=== PATIENT | female | born 1995 | race African-American/Black ===

== ENCOUNTER 2018-01-09 11:47 | Inpatient (IN) | payer MEDICAID ==
[2018-01-09] MEDS ORDERED: ACETAMINOPHEN 325 MG TAB PO PRN (13:45)
[2018-01-09] MEDS ORDERED: LORazepam 1 MG TAB PO PRN (13:45)
[2018-01-09] MEDS ORDERED: MAGNESIUM HYDROXIDE SUSP 30 ML CUP PO PRN (13:45)
[2018-01-09] MEDS ORDERED: ALUMINUM/MAGNESIUM/SIMETH 30 ML CUP PO PRN (13:45)
[2018-01-09] MEDS ORDERED: diphenhydrAMINE HCL 50 MG CAP PO PRN (13:45)
[2018-01-09] MEDS ORDERED: LORazepam 2 MG/ML VIAL IM PRN (13:45)
[2018-01-09] MEDS ORDERED: ZOLO25TA PO (14:25)
[2018-01-09] MEDS ORDERED: ALBU1AER5 INH (14:25)
[2018-01-09] MEDS ORDERED: BUSP10TA PO (14:25)
[2018-01-09] MEDS ORDERED: CELE10TA PO (14:25)
[2018-01-09] MEDS ORDERED: VIST50CA PO (14:25)
[2018-01-09] MEDS ORDERED: LURA40 PO (14:25)
[2018-01-09] MEDS ORDERED: TRAZ1TAB14 PO (14:25)
[2018-01-09 14:41] VITALS: BP 134/80; PULSE 67; RESP 18; TEMP 98.3; O2SAT 99
[2018-01-10 05:49] VITALS: BP 116/59; PULSE 78; RESP 18; TEMP 98.4; O2SAT 100
[2018-01-10 06:51] LABS: BICARBONATE 25.4 MEQ/L (21.0-32.0); BLOOD UREA NITROGEN 12 MG/DL (7-18); CALCIUM 8.5 MG/DL (8.5-10.1); CHLORIDE 108 MEQ/L (98-107); CHOLESTEROL 127 MG/DL (120-200); CREATININE 0.72 MG/DL (0.50-1.00); GLOMERULAR FILTRATION RATE 125 ML/MIN (>89); GLUCOSE,RANDOM 91 MG/DL (74-106); SODIUM (NA) 139 MEQ/L (136-145); TRIGLYCERIDES 113 MG/DL (42-150)
[2018-01-10 07:00] LABS: HDL CHOLESTEROL 29.5 MG/DL (40.0-60.0); LDL CHOLESTEROL 75 MG/DL (0-99)
[2018-01-10] MEDS ORDERED: INFLUENZA VIRUS VACCINE (QUADRIVALENT) 0.5 ML SYR IM ONE (10:00)
[2018-01-10] MEDS ORDERED: PNEUMOCOCCAL POLYVALENT INJ 25 MCG/0.5 ML SYR IM ONE (10:00)
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
[2018-01-10] MEDS ORDERED: hydrOXYzine HCL 50 MG TAB PO PRN (12:00)
[2018-01-10] MEDS ORDERED: POTASSIUM CHLORIDE 10 MEQ CONTROLLED RELEASE TAB PO ONE (13:45)
[2018-01-10 16:12] LABS: HEMOGLOBIN A1C 5.5 % (4.3-6.0)
[2018-01-10 17:00] VITALS: BP 126/66; PULSE 71; RESP 18; TEMP 98.2; O2SAT 100
[2018-01-10] MEDS ORDERED: ALBUTEROL SULFATE 90 MCG/ACT HFA 8 GM INHALER INH PRN (17:00)
[2018-01-10] MEDS: traZODone HCL 50 MG TAB PO SCH (20:23)
[2018-01-11 06:09] VITALS: BP 100/53; PULSE 72; RESP 16; TEMP 97.3; O2SAT 99
[2018-01-11] MEDS: SERTRALINE HCL 50 MG TAB PO SCH (08:00)
[2018-01-11] MEDS: LURASIDONE 40 MG TAB PO SCH (08:00)
--- NOTE | 2018-01-11 09:49 | HHI.PYPN ---
Subjective Chief Complaint: SI Remarks Patient seen and examined with nurse. Chart reviewed. Case discussed with nursing staff who reports that the patient is childlike and somewhat manipulative. Case discussed in treatment team. On my examination today, the patient seems to have reconstituted quickly. She denies any suicidal or homicidal ideation. She is enjoying the socialization on the high acuity unit. She says that she is feeling better and is hopeful for discharge soon. Mood is "pretty happy." She denies AVH. Slept well overnight. Denies side effects from medications. No physical complaints. We discussed possible referral for residential treatment, and patient is receptive to this. Counselor to send out referral to [facility]. Review of Systems Except as stated in HPI: all other systems reviewed are Neg Mental Status Examination Appearance: Appropriate Consciousness: Alert Orientation: x4 Motor Activity: Other (no motor abnormalities noted) Speech: Unremarkable Language: Adequate Fund of Knowledge: Adequate Attention and Concentration: Adequate Memory: Unremarkable Mood: Other ("pretty happy") Affect: Appropriate (somewhat childlike) Thought Process & Associations: Intact, Logical, Goal directed, Linear Thought Content: Appropriate Hallucination Type: None Delusion Type: None Suicidal Ideation: No Suicidal Plan: No Suicidal Intention: No Homicidal Ideation: No Homicidal Plan: No Homicidal Intention: No Insight: Fair Judgment: Impulsive Results Labs labs reviewed. Ongoing microcytic anemia and iron studies are consistent with iron deficiency. Alkaline phosphatase elevation improving. Item Value Date Time White Blood Count 6.9 TH/MM3 01/11/18 0906 Hemoglobin 10.4 GM/DL L 01/11/18 0906 Mean Corpuscular Volume 70.0 FL L 01/11/18 0906 Platelet Count 322 TH/MM3 01/11/18 0906 Sodium Level 139 MEQ/L 01/11/18 0906 Potassium Level 3.6 MEQ/L 01/11/18 0906 Chloride Level 107 MEQ/L 01/11/18 0906 Carbon Dioxide Level 21.9 MEQ/L 01/11/18 0906 Blood Urea Nitrogen 12 MG/DL 01/11/18 0906 Creatinine 0.77 MG/DL 01/11/18 0906 Magnesium Level 2.1 MG/DL 01/11/18 0906 Iron Level 23 MCG/DL L 01/11/18 0906 Total Iron Binding Capacity 500 MCG/DL H 2/16/18 0906 Percent Iron Saturation 4.6 % L 01/11/18905 Ferritin 9 NG/ML 01/11/18905 Alkaline Phosphatase 129 U/L H 01/11/18905 Total Protein 7.2 GM/DL 01/11/18905 Alanine Aminotransferase (ALT/SGPT) 41 U/L 01/11/18905 Aspartate Amino Transf (AST/SGOT) 31 U/L 01/11/18905 Vitals/IOs Vital Signs Date Time Temp Pulse Resp B/P (MAP) Pulse Ox O2 Delivery O2 Flow Rate FiO2 01/11/18 06:09 97.3 72 16 100/53 (69) 99 Assessment & Plan Problem List: (1) Adjustment disorder with mixed disturbance of emotions and conduct ICD Codes: F43.25 - Adjustment disorder with mixed disturbance of emotions and conduct (2) Borderline personality disorder ICD Codes: F60.3 - Borderline personality disorder Assessment & Plan Continue Zoloft and other psychotropics as ordered. Add iron supplement. Continue to monitor on the inpatient unit; I did offer to have the patient return to the lower acuity unit since she is now denying suicidal ideation but she prefers to stay on the higher acuity unit. Continue other medications and care as ordered. Justification for Cont. Inpt. Monitoring for impairment in safety, none noted. Discharge Planning Anticipate discharge after the weekend, hopefully to residential if patient is accepted. Request HC Surrog/Guard Advoc?: No Jairo Butler MD Jan 11, 2018 09:49
[2018-01-11 10:06] LABS: BASOPHIL % 0.4 % (0.0-2.0); EOSINOPHIL # 0.2 TH/MM3 (0-0.4); EOSINOPHIL % 3.1 % (0.0-4.0); HEMATOCRIT 33.6 % (35.0-46.0); HEMOGLOBIN 10.4 GM/DL (11.6-15.3); LYMPH % 32.3 % (9.0-44.0); LYMPHOCYTE # 2.2 TH/MM3 (1.0-4.8); MEAN CORPUSCULAR HEMOGLOBIN 21.8 PG (27.0-34.0); MEAN CORPUSCULAR HGB CONC 31.1 % (32.0-36.0); MEAN PLATELET VOLUME 7.9 FL (7.0-11.0); MONO % 5.5 % (0.0-8.0); MONOCYTE # 0.4 TH/MM3 (0-0.9); NEUT % 58.7 % (16.0-70.0); PLATELET COUNT 322 TH/MM3 (150-450); RED CELL DISTRIBUTION WIDTH 18.6 % (11.6-17.2); WHITE BLOOD COUNT 6.9 TH/MM3 (4.0-11.0)
[2018-01-11 10:46] LABS: ALBUMIN 3.4 GM/DL (3.4-5.0); AST (GOT) 31 U/L (16-38); BICARBONATE 21.9 MEQ/L (21.0-32.0); BLOOD UREA NITROGEN 12 MG/DL (7-18); CALCIUM 8.8 MG/DL (8.5-10.1); CHLORIDE 107 MEQ/L (98-107); CREATININE 0.77 MG/DL (0.50-1.00); GLOMERULAR FILTRATION RATE 116 ML/MIN (>89); GLUCOSE,RANDOM 95 MG/DL (74-106); IRON (FE) 23 MCG/DL (50-170); MAGNESIUM 2.1 MG/DL (1.5-2.5); SODIUM (NA) 139 MEQ/L (136-145)
[2018-01-11 11:04] LABS: % SATURATION IRON PROFILE 4.6 % (20-50); ALKALINE PHOSPHATASE 129 U/L (45-117); ALT (GPT) 41 U/L (9-42); FERRITIN 9 NG/ML (8-252); TOTAL BILIRUBIN ADULT 0.3 MG/DL (0.2-1.0); TOTAL IRON BINDING CAPACITY 500 MCG/DL (250-450); TOTAL PROTEIN 7.2 GM/DL (6.4-8.2)
--- NOTE | 2018-01-11 11:27 | PD.TTN ---
Patient Problems 1. Discharge planning 2. Medication compliance 3. Knowledge deficit 4. Lack of coping skills Progress Toward Goals Provider Present: Dr. Tamica Butler Provider Input: 01-11-18 - Dr. Butler reported that he has increased the patient dosage of Zoloft and kept her on her other medications with no changes. Dr. Butler requested that this counselor contact [facility] regarding residential care. Psychiatric Counselors Present: ANGELA Parnell Psych Therapist Input: 01-11-18 - Counselor has faxed patient's packet to [facility] for their admission staff to review. Group Spec/RT/OT/MCINTOSH Present: DAYNA Dia Group Spec/RT/OT/MCINTOSH Input: 01-11-18 - Patient participates and is social with peers. Discharge Plan Counselor has faxed patient's packet to [facility] for their admissions staff to review regarding residential treatment. Documentation Scribe: ANGELA Parnell Date Resolved: Jan 11, 2018 Jenise Chakraborty Jan 11, 2018 11:27
[2018-01-11] MEDS: FERROUS SULFATE 325 MG (65 MG ELEMENTAL IRON) TAB PO SCH (17:00)
[2018-01-11 17:48] VITALS: BP 112/58; PULSE 72; RESP 18; TEMP 97.7; O2SAT 100
[2018-01-11] MEDS: traZODone HCL 50 MG TAB PO SCH (20:29)
[2018-01-12 06:06] VITALS: BP 107/54; PULSE 70; RESP 16; TEMP 97.4; O2SAT 99
[2018-01-12] MEDS: SERTRALINE HCL 50 MG TAB PO SCH (08:58)
[2018-01-12] MEDS: LURASIDONE 40 MG TAB PO SCH (08:58)
[2018-01-12] MEDS: FERROUS SULFATE 325 MG (65 MG ELEMENTAL IRON) TAB PO SCH ×2 (12:42→17:04)
--- NOTE | 2018-01-12 17:11 | HHI.PYPN ---
Subjective Chief Complaint: SI Remarks Patient was seen and case discussed with nursing. Patient minimizes her suicidal thoughts before admission. She says they were fleeting and she had no plan or intent of hurting herself. Today, she is bright and cheerful has not had any outbursts or altercations with many patients. Is compliant with her medications and tolerating it well. Is looking forward to returning to her life. She denies suicidal or homicidal ideation intent or plan. Tolerating medications well Mental Status Examination Appearance: Appropriate Consciousness: Alert Orientation: x4 Motor Activity: Other (no motor abnormalities noted) Speech: Unremarkable Language: Adequate Fund of Knowledge: Adequate Attention and Concentration: Adequate Memory: Unremarkable Mood: Other ("pretty happy") Affect: Appropriate (somewhat childlike) Thought Process & Associations: Intact, Logical, Goal directed, Linear Thought Content: Appropriate Hallucination Type: None Delusion Type: None Suicidal Ideation: No Suicidal Plan: No Suicidal Intention: No Homicidal Ideation: No Homicidal Plan: No Homicidal Intention: No Insight: Fair Judgment: Impulsive Results Vitals/IOs Vital Signs Date Time Temp Pulse Resp B/P (MAP) Pulse Ox O2 Delivery O2 Flow Rate FiO2 01/12/18 06:06 97.4 70 16 107/54 (71) 99 Assessment & Plan Problem List: (1) Adjustment disorder with mixed disturbance of emotions and conduct ICD Codes: F43.25 - Adjustment disorder with mixed disturbance of emotions and conduct (2) Borderline personality disorder ICD Codes: F60.3 - Borderline personality disorder Assessment & Plan Continue current treatment plan Justification for Cont. Inpt. Patient would decompensate in a less restrictive setting Request HC Surrog/Guard Advoc?: No Adrien Ta DO Jan 12, 2018 17:10
[2018-01-12 17:45] VITALS: BP 101/49; PULSE 71; RESP 17; TEMP 97.5; O2SAT 98
[2018-01-12 18:41] VITALS: BP 97/55; PULSE 65; RESP 18; O2SAT 100
[2018-01-12] MEDS: traZODone HCL 50 MG TAB PO SCH (20:55)
[2018-01-13 06:00] VITALS: BP 97/52; PULSE 72; RESP 16; TEMP 97.8
[2018-01-13] MEDS: SERTRALINE HCL 50 MG TAB PO SCH (09:12)
[2018-01-13] MEDS: LURASIDONE 40 MG TAB PO SCH (09:12)
[2018-01-13] MEDS: FERROUS SULFATE 325 MG (65 MG ELEMENTAL IRON) TAB PO SCH ×2 (13:18→17:49)
--- NOTE | 2018-01-13 14:10 | HHI.PYPN ---
Subjective Chief Complaint: SI Remarks Patient was seen and case discussed with nursing. Patient continues to improve. 's pleasant and cooperative with exam. She is social with others. No visitors today. Describes her mood today is "bored." She is compliant with her medications. She is denies suicidal homicidal ideation intent or plan Mental Status Examination Appearance: Appropriate Consciousness: Alert Orientation: x4 Motor Activity: Other (no motor abnormalities noted) Speech: Unremarkable Language: Adequate Fund of Knowledge: Adequate Attention and Concentration: Adequate Memory: Unremarkable Mood: Other ("pretty happy") Affect: Appropriate (somewhat childlike) Thought Process & Associations: Intact, Logical, Goal directed, Linear Thought Content: Appropriate Hallucination Type: None Delusion Type: None Suicidal Ideation: No Suicidal Plan: No Suicidal Intention: No Homicidal Ideation: No Homicidal Plan: No Homicidal Intention: No Insight: Fair Judgment: Impulsive Results Vitals/IOs Vital Signs Date Time Temp Pulse Resp B/P (MAP) Pulse Ox O2 Delivery O2 Flow Rate FiO2 01/13/18 06:00 97.8 72 16 97/52 (67) 01/12/18 17:45 98 Assessment & Plan Problem List: (1) Adjustment disorder with mixed disturbance of emotions and conduct ICD Codes: F43.25 - Adjustment disorder with mixed disturbance of emotions and conduct (2) Borderline personality disorder ICD Codes: F60.3 - Borderline personality disorder Assessment & Plan Continue current treatment plan Justification for Cont. Inpt. Patient will decompensate in a less restrictive setting Request HC Surrog/Guard Advoc?: No Adrien Ta DO Jan 13, 2018 14:10
[2018-01-13 18:45] VITALS: BP 130/72; PULSE 78; RESP 16; TEMP 98.4; O2SAT 97
[2018-01-13 18:46] VITALS: TEMP 98.4
[2018-01-13] MEDS: traZODone HCL 50 MG TAB PO SCH (20:35)
[2018-01-14 06:00] VITALS: BP 109/50; PULSE 79; RESP 17; TEMP 98.2; O2SAT 99
[2018-01-14] MEDS: SERTRALINE HCL 50 MG TAB PO SCH (08:06)
[2018-01-14] MEDS: LURASIDONE 40 MG TAB PO SCH (08:06)
[2018-01-14] MEDS ORDERED: TRAZ1TAB14 PO (11:28)
[2018-01-14] MEDS ORDERED: FERR325T20 PO (11:28)
[2018-01-14] MEDS ORDERED: ZOLO50TA PO (11:28)
[2018-01-14] MEDS ORDERED: LURA40 PO (11:28)
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
== END 2018-01-14 12:15 | disposition home or self-care (01) | DRG 882 ==
LOC: H260 12:29 → H270 01-10 12:00
PROVIDERS: ADMIT Psychiatry & Neurology Psychiatry; ATTEND Psychiatry & Neurology Psychiatry
DX: F43.25 Adjustment disorder with mixed disturbance of emotions and conduct (principal); R45.851 Suicidal ideations; F31.9 Bipolar disorder, unspecified; D50.9 Iron deficiency anemia, unspecified; F12.90 Cannabis use, unspecified, uncomplicated; F60.3 Borderline personality disorder; F43.10 Post-traumatic stress disorder, unspecified; F41.1 Generalized anxiety disorder; F90.9 Attention-deficit hyperactivity disorder, unspecified type; J45.909 Unspecified asthma, uncomplicated; R74.8 Abnormal levels of other serum enzymes; Z91.5 Personal history of self-harm; Z81.8 Family history of other mental and behavioral disorders; Z23 Encounter for immunization
CPT/HCPCS: 80048; 80053; 80061; 82728; 83036; 83540; 83550; 83735; 84443; 85025; 90686; 90732; Q2038